=== PATIENT | male | born 1985 | race Caucasian/White ===

== ENCOUNTER 2016-11-19 18:30 | Emergency (ER) | payer SELFPAY ==
[~2016-11-19] VITALS: Ht 172.7 cm; Wt 77.2 kg
[2016-11-19] MEDS ORDERED: CLON.1 PO (18:38)
[2016-11-19 18:41] VITALS: BP 162/97
== END 2016-11-19 20:29 | disposition left against medical advice (07) ==
LOC: EMS 18:36
DX: R42 Dizziness and giddiness (principal); I10 Essential (primary) hypertension; Z53.21 Procedure and treatment not carried out due to patient leaving prior to being seen by health care provider